=== PATIENT | male | born 1935 | race Caucasian/White ===

== ENCOUNTER 2016-07-23 16:45 | Emergency (ER) | payer MEDICARE, BC ==
[2016-07-23 19:48] LABS: HEMOGLOBIN 14.9 gm/dl (14.0-17.5); RED BLOOD COUNT 5.04 M/UL (4.20-5.50); WHITE BLOOD COUNT 4.8 K/UL (4.5-11.0)
[2016-07-23 20:14] LABS: BUN/CREATININE RATIO 16 (0-10)
== END 2016-07-23 22:16 | disposition home or self-care (01) ==
LOC: ER1 16:45
PROVIDERS: Physician Assistant
DX: R42 Dizziness and giddiness (principal); R53.1 Weakness; E11.9 Type 2 diabetes mellitus without complications; I10 Essential (primary) hypertension; Z79.82 Long term (current) use of aspirin; Z79.899 Other long term (current) drug therapy
CPT/HCPCS: 36415; 70450; 71010; 80053; 81001; 82550; 82553; 83874; 83880; 84439; 84443; 84484; 85025; 87086; 93005; 99285

== ENCOUNTER → 2016-08-08 | Outpatient (CLI) | payer MEDICARE, BC | LOC: LAB 10:30 | DX: H81.49 Vertigo of central origin, unspecified ear (principal) | CPT/HCPCS: 36415; 82565; 84520 ==

== ENCOUNTER → 2016-08-14 | Outpatient (CLI) | payer MEDICARE, BC | LOC: ECHO 12:20 | DX: Z12.31 Encounter for screening mammogram for malignant neoplasm of breast (principal); R10.9 Unspecified abdominal pain; R60.9 Edema, unspecified; H81.49 Vertigo of central origin, unspecified ear; G45.9 Transient cerebral ischemic attack, unspecified; I65.23 Occlusion and stenosis of bilateral carotid arteries; G31.9 Degenerative disease of nervous system, unspecified; R90.89 Other abnormal findings on diagnostic imaging of central nervous system | CPT/HCPCS: ECHO; 70553; 93306; 93880; A9577 ==

== ENCOUNTER 2020-03-10 12:00 | Emergency (ER) | payer MEDICARE, BC | END 2020-03-10 17:45 | disposition home or self-care (01) | LOC: ER1 12:00 | DX: U07.1 COVID-19 (principal) | CPT/HCPCS: 99283; M0239 ==

== ENCOUNTER 2020-03-11 07:40 | Emergency (ER) | payer MEDICARE, BC ==
[2020-03-11 09:49] LABS: HEMOGLOBIN 13.4 gm/dl (14.0-17.5); RED BLOOD COUNT 4.64 M/UL (4.20-5.50); WHITE BLOOD COUNT 5.1 K/UL (4.5-11.0)
[2020-03-11 12:22] LABS: BUN/CREATININE RATIO 24 (0-10)
== END 2020-03-11 14:14 | disposition home or self-care (01) ==
LOC: ER1 07:40
PROVIDERS: Emergency Medicine
DX: U07.1 COVID-19 (principal); E86.0 Dehydration
CPT/HCPCS: 36600; 71045; 80053; 82803; 85025; 87040; 93005; 99285; J7030

== ENCOUNTER → 2021-01-06 | Outpatient (CLI) | payer MEDICARE, BC ==
[2021-01-06 11:00] LABS: HEMOGLOBIN 16.6 gm/dl (14.0-17.5); RED BLOOD COUNT 5.47 M/UL (4.20-5.50); WHITE BLOOD COUNT 7.1 K/UL (4.5-11.0)
== END ==
LOC: LAB 10:04
PROVIDERS: Internal Medicine
DX: E11.65 Type 2 diabetes mellitus with hyperglycemia (principal); E03.9 Hypothyroidism, unspecified
CPT/HCPCS: 36415; 80048; 80076; 83036; 84443; 85025

== ENCOUNTER → 2021-10-10 | Outpatient (CLI) | payer MEDICARE, BC ==
[2021-10-10 10:18] LABS: HEMOGLOBIN 15.4 gm/dl (14.0-17.5); RED BLOOD COUNT 5.32 M/UL (4.20-5.50); WHITE BLOOD COUNT 6.2 K/UL (4.5-11.0)
== END ==
LOC: LAB 09:41
PROVIDERS: Internal Medicine
DX: I10 Essential (primary) hypertension (principal); D69.1 Qualitative platelet defects
CPT/HCPCS: 36415; 80048; 80061; 80076; 83036; 84443; 85025